=== PATIENT | female | born 1960 | race Two or more races ===

== ENCOUNTER 2021-03-14 13:53 | Emergency (ER) | payer MEDICAID, OTHER ==
[~2021-03-14] VITALS: Ht 170.2 cm; Wt 93.0 kg
[~2021-03-14 13:53] MED LIST: TOPUD MT
[2021-03-14] MEDS ORDERED: NITROGLYCERIN 0.4MG TABLET SL SL PRN (14:15)
[2021-03-14] MEDS ORDERED: ASPIRIN 81MG TABLET PO ONE (14:15)
[2021-03-14] MEDS ORDERED: ASPIRIN 81MG EC TABLET PO ONE (15:15)
[2021-03-14] MEDS ORDERED: FAMOTIDINE 20MG/2ML VIAL IV STA (17:05)
[2021-03-14] MEDS ORDERED: METOCLOPRAMIDE HCL 10MG/2ML VIAL IV STA (17:05)
[2021-03-14 17:26] LABS: BASOPHILS % 0.2 % (0.0-2.0); EOSINOPHILS % 0.5 % (0.0-5.0); HEMOGLOBIN. 15.1 g/dL (12.0-16.0); MEAN CORPUSCULAR HEMOGLOBIN 27.8 pg (28.0-32.0); MEAN CORPUSCULAR VOLUME 82.6 fL (81.0-99.0); MONOCYTES % 3.2 % (2.0-8.0); NEUTROPHILS % 85.1 % (40.0-76.0); PLATELET 335 x1000/uL (130-400); RED BLOOD CELL COUNT 5.44 mill/uL (4.2-5.4); RED CELL DISTRIBUTION WIDTH 13.8 % (11.6-14.6)
[2021-03-14 17:33] LABS: CHLORIDE 105 mEq/L (98-107)
[2021-03-14 17:42] LABS: HDL CHOLESTEROL 46 mg/dL (40-59); LDL CHOLESTEROL 129 mg/dL (5-100)
[2021-03-14] MEDS ORDERED: SODIUM CHLORIDE 0.9% 1,000 ML IV ONE (17:45)
[2021-03-14] MEDS ORDERED: POTASSIUM CHLORIDE 20MEQ TABLET SR PO NR (20:00)
[2021-03-14] MEDS ORDERED: KETOROLAC 15MG/ML VIAL IV ONE (20:45)
[2021-03-14] MEDS ORDERED: KETOROLAC 30MG/ML VIAL IV SCH (21:00)
[2021-03-14 21:32] LABS: CLARITY URINE CLEAR (CLEAR); COLOR URINE YELLOW (YELLOW); KETONES URINE TRACE (NEGATIVE); LEUKOCYTE ESTERASE URINE NEGATIVE (NEGATIVE); NITRITE URINE NEGATIVE (NEGATIVE); OCCULT BLOOD URINE NEGATIVE (NEGATIVE); PH URINE 5.5 (4.5-8.0); PROTEIN URINE TRACE (NEGATIVE); SPECIFIC GRAVITY URINE 1.017 (1.005-1.030); UROBILINOGEN URINE 0.2 E.U./dL (0.2-1.0)
[2021-03-14 23:20] VITALS: BP 126/85
== END 2021-03-14 23:22 | disposition short-term general hospital (02) ==
LOC: ER 13:53
DX: K80.80 Other cholelithiasis without obstruction (principal); R00.0 Tachycardia, unspecified; E87.6 Hypokalemia; I10 Essential (primary) hypertension; E03.9 Hypothyroidism, unspecified
CPT/HCPCS: 36415; 71045; 74176; 76700; 80053; 80061; 81003; 83880; 84484; 85025; 93005; 96361; 96374; 96375; 99285; J1885; J2765; J3490; J7030

== ENCOUNTER 2021-07-29 17:43 | Emergency (ER) | payer MEDICAID, OTHER ==
[~2021-07-29] VITALS: Ht 167.6 cm; Wt 104.0 kg
[2021-07-29] MEDS ORDERED: ONDANSETRON HCL 4MG/2ML INJ IV ONE (19:15)
[2021-07-29] MEDS ORDERED: FAMOTIDINE 20MG/2ML VIAL IV ONE (19:15)
[2021-07-29] MEDS ORDERED: MORPHINE SULFATE 4 MG/ML CPJ (NOT FOR IM USE) IV ONE ×2 (19:15→21:15)
[2021-07-29 20:13] LABS: BASOPHILS % 0.5 % (0.0-2.0); EOSINOPHILS % 3.8 % (0.0-5.0); HEMATOCRIT. 36.7 % (36.0-48.0); HEMOGLOBIN. 12.6 g/dL (12.0-16.0); LYMPHOCYTES % 29.5 % (20.0-50.0); MEAN CORPUSCULAR HEMOGLOBIN 27.5 pg (28.0-32.0); MEAN CORPUSCULAR VOLUME 79.9 fL (81.0-99.0); MONOCYTES % 9.9 % (2.0-8.0); NEUTROPHILS % 56.3 % (40.0-76.0); PLATELET 248 x1000/uL (130-400)
[2021-07-29 20:17] LABS: CLARITY URINE CLEAR (CLEAR); COLOR URINE YELLOW (YELLOW); KETONES URINE TRACE (NEGATIVE); LEUKOCYTE ESTERASE URINE NEGATIVE (NEGATIVE); NITRITE URINE NEGATIVE (NEGATIVE); OCCULT BLOOD URINE NEGATIVE (NEGATIVE); PROTEIN URINE NEGATIVE (NEGATIVE); SPECIFIC GRAVITY URINE 1.016 (1.005-1.030)
[2021-07-29 20:22] LABS: CHLORIDE 109 mEq/L (98-107)
[2021-07-29 21:41] LABS: PROTHROMBIN TIME 10.8 sec (9.6-11.0)
[2021-07-29] MEDS ORDERED: POTASSIUM CHLORIDE 20MEQ/PACKET PO ONE (22:30)
[2021-07-29 23:55] LABS: T4 FREE 1.52 ng/dL (0.76-1.46)
[2021-07-30] MEDS ORDERED: FAMO40TA70 MT (00:15)
[2021-07-30 00:24] VITALS: BP 139/80
[2021-07-30] MEDS ORDERED: MORPHINE SULFATE 4 MG/ML CPJ (NOT FOR IM USE) IV ONE (00:30)
== END 2021-07-30 00:30 | disposition home or self-care (01) ==
LOC: ER 17:43
DX: K80.20 Calculus of gallbladder without cholecystitis without obstruction (principal); R00.0 Tachycardia, unspecified; E87.6 Hypokalemia; I10 Essential (primary) hypertension
CPT/HCPCS: 36415; 71045; 74176; 76700; 80053; 81003; 83690; 83880; 84439; 84443; 84481; 84484; 85025; 85610; 93005; 96374; 96375; 96376; 99285; J2270; J2405; J3490

== ENCOUNTER 2022-02-09 12:23 | Emergency (ER) | payer OTHER ==
[~2022-02-09] VITALS: Ht 170.2 cm; Wt 85.0 kg
[~2022-02-09 12:23] MED LIST changes: +FAMO40TA70 MT
[2022-02-09 12:37] VITALS: BP 122/81
== END 2022-02-09 16:50 | disposition left against medical advice (07) ==
LOC: ER 12:23
DX: Z53.21 Procedure and treatment not carried out due to patient leaving prior to being seen by health care provider (principal)

== ENCOUNTER 2022-03-13 13:36 | Inpatient (IN) | payer MEDICAID ==
[~2022-03-13] VITALS: Ht 170.2 cm; Wt 84.9 kg
[~2022-03-13 13:36] MED LIST changes: +APIX5TAB PO; +DILT90TA2 PO; +HYDR-4001 MT; +METH-371 PO; +ZOLP5TAB2 MT
[2022-03-13] MEDS ORDERED: MIDAZOLAM HCL 2 MG/2 ML VIAL IV ONE (14:30)
[2022-03-13] MEDS ORDERED: ASPIRIN 81MG TABLET PO ONE (14:30)
[2022-03-13] MEDS ORDERED: ADENOSINE 3 MG/ML 2ML VIAL IV ONE ×3 (14:30)
[2022-03-13 14:56] LABS: BASOPHILS % 1.2 % (0.0-2.0); EOSINOPHILS % 2.1 % (0.0-5.0); HEMATOCRIT. 43.1 % (36.0-48.0); HEMOGLOBIN. 14.1 g/dL (12.0-16.0); LYMPHOCYTES % 47.3 % (20.0-50.0); MEAN CORPUSCULAR HEMOGLOBIN 26.7 pg (28.0-32.0); MEAN CORPUSCULAR VOLUME 81.6 fL (81.0-99.0); MEAN PLATELET VOLUME 8.5 fl (7.4-10.4); MONOCYTES % 6.3 % (2.0-8.0); NEUTROPHILS % 43.1 % (40.0-76.0); PLATELET 392 x1000/uL (130-400); RED BLOOD CELL COUNT 5.28 mill/uL (4.2-5.4); RED CELL DISTRIBUTION WIDTH 14.9 % (11.6-14.6)
[2022-03-13 15:09] LABS: INR 1.1; PARTIAL THROMBOPLASTIN TIME 29.1 sec (23.4-31.0); PROTHROMBIN TIME 11.7 sec (9.6-11.0)
[2022-03-13 15:20] LABS: CHLORIDE 107 mEq/L (98-107)
[2022-03-13] MEDS ORDERED: ASPIRIN 325MG EC TABLET PO ONE (16:15)
[2022-03-13] MEDS ORDERED: MORPHINE SULFATE 2 MG/ML CPJ (NOT FOR IM USE) IV ONE (16:15)
[2022-03-13] MEDS ORDERED: AMIODARONE HCL 150 MG in DEXT 5% WATER 97 ML IV ONE (16:30)
[2022-03-13] MEDS ORDERED: AMIODARONE HCL 900 MG in DEXT 5% WATER 482 ML IV SCH (16:45)
[2022-03-13] MEDS ORDERED: POTASSIUM CHLORIDE 20MEQ TABLET SR PO ONE (16:45)
[2022-03-13] MEDS ORDERED: ENOXAPARIN 100MG/ML SYR SUBCUT ONE (17:30)
[2022-03-13] MEDS: ENOXAPARIN 100MG/ML SYR SUBCUT SCH ×2 (17:43→17:47)
[2022-03-13 21:20] VITALS: BP 117/71
[2022-03-13 21:30] VITALS: BP 117/71
[2022-03-13] MEDS ORDERED: IOHEXOL-350 100 ML BOTTLE ONE (23:12)
[2022-03-13 23:13] VITALS: BP 126/82
[2022-03-13 23:28] VITALS: BP 114/71
[2022-03-13] MEDS ORDERED: NALOXONE HCL 0.4MG/ML VIAL IV PRN (23:45)
[2022-03-13] MEDS: AMIODARONE HCL 900 MG in DEXT 5% WATER 482 ML IV SCH (23:58)
[2022-03-13 23:59] VITALS: BP 122/81
[2022-03-14] VITALS (45 sets, daily range): BP systolic 11–132; BP diastolic 34–101
[2022-03-14] MEDS: ZOLPIDEM TARTRATE 5MG TABLET PO PRN ×2 (00:01→20:58)
[2022-03-14] MEDS: HYDROCODONE/ACETAMINOPHEN 10/325MG TABLET PO PRN ×4 (00:01→20:58)
[2022-03-14 06:56] LABS: BASOPHILS % 1.2 % (0.0-2.0); HEMATOCRIT. 38.1 % (36.0-48.0); HEMOGLOBIN. 12.5 g/dL (12.0-16.0); LYMPHOCYTES % 42.3 % (20.0-50.0); MEAN CORPUSCULAR HEMOGLOBIN 26.9 pg (28.0-32.0); MEAN CORPUSCULAR VOLUME 81.9 fL (81.0-99.0); MEAN PLATELET VOLUME 8.8 fl (7.4-10.4); MONOCYTES % 8.4 % (2.0-8.0); NEUTROPHILS % 44.1 % (40.0-76.0); PLATELET 296 x1000/uL (130-400); RED BLOOD CELL COUNT 4.65 mill/uL (4.2-5.4); RED CELL DISTRIBUTION WIDTH 14.7 % (11.6-14.6)
[2022-03-14 07:08] LABS: CHLORIDE 112 mEq/L (98-107)
[2022-03-14] MEDS ORDERED: APIXABAN 5 MG TABLET PO SCH (09:00)
[2022-03-14] MEDS ORDERED: DILTIAZEM HCL 90MG TABLET PO SCH (09:00)
[2022-03-14] MEDS: FAMOTIDINE 20MG TABLET PO SCH ×2 (09:05→17:00)
[2022-03-14] MEDS ORDERED: METHIMAZOLE 5MG TABLET PO SCH (09:30)
[2022-03-14] MEDS ORDERED: METHIMAZOLE 10MG TABLET PO SCH (09:51)
[2022-03-14] MEDS ORDERED: POTASSIUM CHLORIDE 20MEQ/PACKET PO NR (10:30)
[2022-03-14] MEDS ORDERED: MAGNESIUM 2 G PREMIX 50 ML IV NR (10:30)
[2022-03-14] MEDS: ENOXAPARIN 100MG/ML SYR SUBCUT SCH (18:06)
[2022-03-14] MEDS: ACETAMINOPHEN 325MG TABLET PO PRN (18:44)
[2022-03-14] MEDS: AMIODARONE HCL 900 MG in DEXT 5% WATER 482 ML IV SCH (18:49)
[2022-03-14 19:55] LABS: T4 FREE 1.34 ng/dL (0.76-1.46)
[2022-03-14] MEDS: DILTIAZEM HCL 60MG TABLET PO SCH (20:12)
[2022-03-14] MEDS: METHIMAZOLE 10MG TABLET PO SCH (21:07)
[2022-03-15] VITALS (27 sets, daily range): BP systolic 99–150; BP diastolic 56–98
[2022-03-15] MEDS: DILTIAZEM HCL 60MG TABLET PO SCH ×4 (01:06→21:11)
[2022-03-15] MEDS: ENOXAPARIN 100MG/ML SYR SUBCUT SCH ×2 (06:09→17:08)
[2022-03-15] MEDS: METHIMAZOLE 10MG TABLET PO SCH ×3 (06:32→21:13)
[2022-03-15 06:38] LABS: BASOPHILS % 1.4 % (0.0-2.0); EOSINOPHILS % 5.7 % (0.0-5.0); HEMATOCRIT. 36.8 % (36.0-48.0); HEMOGLOBIN. 12.4 g/dL (12.0-16.0); LYMPHOCYTES % 42.7 % (20.0-50.0); MEAN CORPUSCULAR HEMOGLOBIN 27.4 pg (28.0-32.0); MEAN CORPUSCULAR VOLUME 81.2 fL (81.0-99.0); MEAN PLATELET VOLUME 8.5 fl (7.4-10.4); MONOCYTES % 8.9 % (2.0-8.0); NEUTROPHILS % 41.3 % (40.0-76.0); PLATELET 296 x1000/uL (130-400); RED BLOOD CELL COUNT 4.53 mill/uL (4.2-5.4); RED CELL DISTRIBUTION WIDTH 14.8 % (11.6-14.6)
[2022-03-15 06:43] LABS: CHLORIDE 110 mEq/L (98-107)
[2022-03-15] MEDS: ACETAMINOPHEN 325MG TABLET PO PRN (06:46)
[2022-03-15] MEDS: KCL 20MEQ/100ML PREMIX 100 ML IV SCH ×2 (08:44→11:03)
[2022-03-15] MEDS: HYDROCODONE/ACETAMINOPHEN 10/325MG TABLET PO PRN ×3 (08:45→21:12)
[2022-03-15] MEDS: FAMOTIDINE 20MG TABLET PO SCH ×2 (08:45→17:08)
[2022-03-15] MEDS: MAGNESIUM OXIDE 400MG TABLET PO SCH (08:45)
[2022-03-15] MEDS ORDERED: MORPHINE SULFATE 2 MG/ML CPJ (NOT FOR IM USE) IV NR (12:30)
[2022-03-15] MEDS ORDERED: LACTULOSE 20G/30ML UDC PO PRN (12:30)
[2022-03-15] MEDS ORDERED: DOCUSATE SODIUM 250MG CAPSULE PO PRN (12:30)
[2022-03-15] MEDS: ONDANSETRON HCL 4MG/2ML INJ IV PRN ×2 (12:34→17:22)
[2022-03-15 13:57] LABS: *AMPHETAMINES SCREEN URINE NEGATIVE (NEGATIVE); *BARBITURATES SCREEN URINE NEGATIVE (NEGATIVE); *BENZODIAZEPINES SCREEN URINE PRESUMTIVE POSITIVE (NEGATIVE); *COCAINE SCREEN URINE NEGATIVE (NEGATIVE); CANNABINOID URINE SCREEN NEGATIVE (NEGATIVE); METHADONE URINE SCREEN NEGATIVE (NEGATIVE); OPIATES URINE SCREEN PRESUMTIVE POSITIVE (NEGATIVE); PHENCYCLIDINE URINE SCREEN NEGATIVE (NEGATIVE)
[2022-03-15] MEDS: ZOLPIDEM TARTRATE 5MG TABLET PO PRN (21:13)
[2022-03-16] VITALS (32 sets, daily range): BP systolic 97–145; BP diastolic 44–100
[2022-03-16 05:45] LABS: BASOPHILS % 0.9 % (0.0-2.0); EOSINOPHILS % 3.8 % (0.0-5.0); HEMATOCRIT. 36.7 % (36.0-48.0); HEMOGLOBIN. 12.2 g/dL (12.0-16.0); LYMPHOCYTES % 37.3 % (20.0-50.0); MEAN CORPUSCULAR HEMOGLOBIN 27.1 pg (28.0-32.0); MEAN CORPUSCULAR VOLUME 81.9 fL (81.0-99.0); MEAN PLATELET VOLUME 8.6 fl (7.4-10.4); MONOCYTES % 8.6 % (2.0-8.0); NEUTROPHILS % 49.4 % (40.0-76.0); PLATELET 273 x1000/uL (130-400); RED BLOOD CELL COUNT 4.48 mill/uL (4.2-5.4); RED CELL DISTRIBUTION WIDTH 14.6 % (11.6-14.6)
[2022-03-16 05:58] LABS: CHLORIDE 108 mEq/L (98-107)
[2022-03-16] MEDS: ENOXAPARIN 100MG/ML SYR SUBCUT SCH ×2 (06:29→17:52)
[2022-03-16] MEDS: METHIMAZOLE 10MG TABLET PO SCH ×3 (06:30→21:37)
[2022-03-16] MEDS: DILTIAZEM HCL 60MG TABLET PO SCH (06:30)
[2022-03-16] MEDS: HYDROCODONE/ACETAMINOPHEN 10/325MG TABLET PO PRN ×3 (06:36→18:44)
[2022-03-16] MEDS: FAMOTIDINE 20MG TABLET PO SCH ×2 (09:48→17:48)
[2022-03-16] MEDS: METOPROLOL TARTRATE 25MG TABLET PO SCH ×2 (09:48→21:35)
[2022-03-16] MEDS: MAGNESIUM OXIDE 400MG TABLET PO SCH (09:48)
[2022-03-16] MEDS: DILTIAZEM HCL 90MG TABLET PO SCH ×2 (14:18→21:36)
[2022-03-16] MEDS: ZOLPIDEM TARTRATE 5MG TABLET PO PRN (21:42)
[2022-03-17] VITALS (22 sets, daily range): BP systolic 109–140; BP diastolic 51–87
[2022-03-17] MEDS: HYDROCODONE/ACETAMINOPHEN 10/325MG TABLET PO PRN ×3 (00:52→15:49)
[2022-03-17] MEDS: METHIMAZOLE 10MG TABLET PO SCH ×3 (06:17→21:09)
[2022-03-17] MEDS: DILTIAZEM HCL 90MG TABLET PO SCH ×3 (06:17→21:09)
[2022-03-17] MEDS: ENOXAPARIN 100MG/ML SYR SUBCUT SCH ×2 (06:17→17:47)
[2022-03-17] MEDS: FAMOTIDINE 20MG TABLET PO SCH ×2 (09:15→17:47)
[2022-03-17] MEDS: MAGNESIUM OXIDE 400MG TABLET PO SCH (09:15)
[2022-03-17] MEDS: METOPROLOL TARTRATE 25MG TABLET PO SCH ×2 (09:15→21:08)
[2022-03-17] MEDS: ZOLPIDEM TARTRATE 5MG TABLET PO PRN (21:44)
[2022-03-18] VITALS (25 sets, daily range): BP systolic 103–154; BP diastolic 54–101
[2022-03-18] MEDS: HYDROCODONE/ACETAMINOPHEN 10/325MG TABLET PO PRN ×3 (02:11→16:08)
[2022-03-18] MEDS: DILTIAZEM HCL 90MG TABLET PO SCH ×3 (06:11→21:22)
[2022-03-18] MEDS: METHIMAZOLE 10MG TABLET PO SCH ×3 (06:11→21:23)
[2022-03-18] MEDS: ENOXAPARIN 100MG/ML SYR SUBCUT SCH ×3 (06:12→15:44)
[2022-03-18 06:22] LABS: BASOPHILS % 1.5 % (0.0-2.0); EOSINOPHILS % 4.3 % (0.0-5.0); HEMATOCRIT. 37.6 % (36.0-48.0); HEMOGLOBIN. 12.3 g/dL (12.0-16.0); LYMPHOCYTES % 50.2 % (20.0-50.0); MEAN CORPUSCULAR HEMOGLOBIN 26.8 pg (28.0-32.0); MEAN CORPUSCULAR VOLUME 81.8 fL (81.0-99.0); MEAN PLATELET VOLUME 8.9 fl (7.4-10.4); MONOCYTES % 7.6 % (2.0-8.0); NEUTROPHILS % 36.4 % (40.0-76.0); PLATELET 298 x1000/uL (130-400); RED CELL DISTRIBUTION WIDTH 14.6 % (11.6-14.6)
[2022-03-18 09:15] LABS: CHLORIDE 109 mEq/L (98-107)
[2022-03-18] MEDS: FAMOTIDINE 20MG TABLET PO SCH ×2 (09:45→16:04)
[2022-03-18] MEDS: MAGNESIUM OXIDE 400MG TABLET PO SCH (09:45)
[2022-03-18] MEDS: METOPROLOL TARTRATE 25MG TABLET PO SCH ×2 (09:46→21:21)
[2022-03-18] MEDS: ZOLPIDEM TARTRATE 5MG TABLET PO PRN (21:23)
[2022-03-19] VITALS (19 sets, daily range): BP systolic 80–134; BP diastolic 42–94
[2022-03-19 05:55] LABS: BASOPHILS % 0.9 % (0.0-2.0); EOSINOPHILS % 3.9 % (0.0-5.0); HEMATOCRIT. 35.8 % (36.0-48.0); HEMOGLOBIN. 11.9 g/dL (12.0-16.0); LYMPHOCYTES % 43.4 % (20.0-50.0); MEAN CORPUSCULAR HEMOGLOBIN 27.1 pg (28.0-32.0); MEAN CORPUSCULAR VOLUME 81.1 fL (81.0-99.0); MEAN PLATELET VOLUME 8.3 fl (7.4-10.4); NEUTROPHILS % 43.8 % (40.0-76.0); PLATELET 282 x1000/uL (130-400); RED BLOOD CELL COUNT 4.41 mill/uL (4.2-5.4); RED CELL DISTRIBUTION WIDTH 14.4 % (11.6-14.6)
[2022-03-19 05:58] LABS: PARTIAL THROMBOPLASTIN TIME 27.9 sec (23.4-31.0); PROTHROMBIN TIME 10.8 sec (9.6-11.0)
[2022-03-19 06:13] LABS: CHLORIDE 109 mEq/L (98-107)
[2022-03-19] MEDS: METHIMAZOLE 10MG TABLET PO SCH ×3 (06:21→21:42)
[2022-03-19] MEDS: DILTIAZEM HCL 90MG TABLET PO SCH ×3 (06:21→21:42)
[2022-03-19] MEDS ORDERED: HEPARIN 1000 UNITS/ML 10ML ONE (07:21)
[2022-03-19] MEDS ORDERED: LIDOCAINE HCL 1% 50ML VIAL (10MG/ML) ONE (08:05)
[2022-03-19] MEDS ORDERED: PROPOFOL 10MG/ML 100ML 0 ML IV ONE (08:08)
[2022-03-19] MEDS ORDERED: FENTANYL CITRATE/PF 50MCG/ML 2ML VIAL ONE (08:15)
[2022-03-19] MEDS ORDERED: PROPOFOL 200MG/20ML VIAL IV ONE (08:23)
[2022-03-19] MEDS ORDERED: KCL 20MEQ/100ML PREMIX 100 ML IV ONE (08:33)
[2022-03-19] MEDS ORDERED: PHENYLEPHRINE HCL 10 MG/ML 1ML (IV VIAL) IV ONE (08:37)
[2022-03-19] MEDS: MAGNESIUM OXIDE 400MG TABLET PO SCH (09:00)
[2022-03-19] MEDS: METOPROLOL TARTRATE 25MG TABLET PO SCH ×2 (09:00→21:41)
[2022-03-19] MEDS ORDERED: CEFAZOLIN SODIUM 1000MG/VIAL ONE (09:20)
[2022-03-19] MEDS ORDERED: EPHEDRINE SULFATE 50MG/ML VIAL ONE (10:49)
[2022-03-19] MEDS ORDERED: ONDANSETRON HCL 4MG/2ML INJ ONE (10:49)
[2022-03-19] MEDS ORDERED: ATROPINE SULFATE 1MG/10ML SYR IV PRN (11:30)
[2022-03-19] MEDS ORDERED: ACETAMINOPHEN 325MG TABLET PO PRN (11:30)
[2022-03-19] MEDS ORDERED: NALOXONE HCL 0.4MG/ML VIAL IV PRN (12:45)
[2022-03-19] MEDS: HYDROCODONE/ACETAMINOPHEN 5/325MG TABLET PO PRN ×3 (12:50→23:37)
[2022-03-19] MEDS: FAMOTIDINE 20MG TABLET PO SCH ×2 (12:51→18:35)
[2022-03-19] MEDS: ZOLPIDEM TARTRATE 5MG TABLET PO PRN (21:44)
[2022-03-20] VITALS: BP 112/64
[2022-03-20 04:00] VITALS: BP 121/72
[2022-03-20] MEDS: METHIMAZOLE 10MG TABLET PO SCH ×3 (05:17→22:07)
[2022-03-20] MEDS: DILTIAZEM HCL 90MG TABLET PO SCH ×3 (05:17→21:32)
[2022-03-20] MEDS: HYDROCODONE/ACETAMINOPHEN 5/325MG TABLET PO PRN ×3 (05:18→23:52)
[2022-03-20 06:37] LABS: BASOPHILS % 0.9 % (0.0-2.0); EOSINOPHILS % 3.5 % (0.0-5.0); HEMATOCRIT. 32.6 % (36.0-48.0); LYMPHOCYTES % 33.6 % (20.0-50.0); MEAN CORPUSCULAR HEMOGLOBIN 27.6 pg (28.0-32.0); MEAN CORPUSCULAR VOLUME 81.4 fL (81.0-99.0); MEAN PLATELET VOLUME 8.5 fl (7.4-10.4); MONOCYTES % 7.8 % (2.0-8.0); NEUTROPHILS % 54.2 % (40.0-76.0); PLATELET 241 x1000/uL (130-400); RED CELL DISTRIBUTION WIDTH 14.6 % (11.6-14.6)
[2022-03-20 06:40] LABS: CHLORIDE 111 mEq/L (98-107)
[2022-03-20 08:00] VITALS: BP 97/63
[2022-03-20] MEDS: MAGNESIUM OXIDE 400MG TABLET PO SCH (09:00)
[2022-03-20] MEDS: METOPROLOL TARTRATE 25MG TABLET PO SCH ×2 (09:43→21:32)
[2022-03-20] MEDS: FAMOTIDINE 20MG TABLET PO SCH ×2 (09:43→18:28)
[2022-03-20 12:00] VITALS: BP 120/75
[2022-03-20] MEDS ORDERED: METH-372 MT (13:05)
[2022-03-20 16:00] VITALS: BP 106/50
[2022-03-20 20:00] VITALS: BP_SYST 108; BP_SYST 110; BP_DIAS 67
[2022-03-20] MEDS ORDERED: ZOLPIDEM TARTRATE 5MG TABLET PO PRN (22:00)
[2022-03-21] VITALS: BP 139/76
[2022-03-21 04:00] VITALS: BP 132/75
[2022-03-21] MEDS: METHIMAZOLE 10MG TABLET PO SCH (05:24)
[2022-03-21] MEDS: DILTIAZEM HCL 90MG TABLET PO SCH (05:24)
[2022-03-21 08:00] VITALS: BP 122/60
[2022-03-21] MEDS: METOPROLOL TARTRATE 25MG TABLET PO SCH (08:53)
[2022-03-21] MEDS: FAMOTIDINE 20MG TABLET PO SCH (08:53)
[2022-03-21] MEDS: MAGNESIUM OXIDE 400MG TABLET PO SCH (08:54)
[2022-03-21] MEDS: HYDROCODONE/ACETAMINOPHEN 5/325MG TABLET PO PRN (08:56)
[2022-03-21 09:31] VITALS: BP 122/60
== END 2022-03-21 10:15 | disposition home or self-care (01) | DRG 175 ==
LOC: ER 13:50 → CVICU 16:45 → EDBEDREQ 16:50 → 7WST 03-19 17:51
PROVIDERS: ADMIT Internal Medicine; ATTEND Internal Medicine
PROC: 5A2204Z Restoration of Cardiac Rhythm, Single (ICD-10-PCS; 2022-03-13)
PROC: 02583ZZ Destruction of Conduction Mechanism, Percutaneous Approach (ICD-10-PCS; principal; 2022-03-19)
PROC: 4A0234Z Measurement of Cardiac Electrical Activity, Percutaneous Approach (ICD-10-PCS; 2022-03-19)
PROC: B24BZZZ Ultrasonography of Heart with Aorta (ICD-10-PCS; 2022-03-19)
PROC: 02K83ZZ Map Conduction Mechanism, Percutaneous Approach (ICD-10-PCS; 2022-03-19)
DX: I48.0 Paroxysmal atrial fibrillation (principal); D68.69 Other thrombophilia; I27.21 Secondary pulmonary arterial hypertension; E44.0 Moderate protein-calorie malnutrition; G72.3 Periodic paralysis; I48.3 Typical atrial flutter; I47.1 Supraventricular tachycardia; E03.9 Hypothyroidism, unspecified; E05.00 Thyrotoxicosis with diffuse goiter without thyrotoxic crisis or storm; E78.00 Pure hypercholesterolemia, unspecified; J44.9 Chronic obstructive pulmonary disease, unspecified; I10 Essential (primary) hypertension; E83.42 Hypomagnesemia; K80.20 Calculus of gallbladder without cholecystitis without obstruction; K76.9 Liver disease, unspecified; I25.10 Atherosclerotic heart disease of native coronary artery without angina pectoris; E78.5 Hyperlipidemia, unspecified; F14.90 Cocaine use, unspecified, uncomplicated; I49.9 Cardiac arrhythmia, unspecified; I34.0 Nonrheumatic mitral (valve) insufficiency; R73.9 Hyperglycemia, unspecified; F32.A Depression, unspecified; F17.210 Nicotine dependence, cigarettes, uncomplicated; R47.81 Slurred speech; Z79.01 Long term (current) use of anticoagulants; Z82.49 Family history of ischemic heart disease and other diseases of the circulatory system; Z63.4 Disappearance and death of family member; Z80.1 Family history of malignant neoplasm of trachea, bronchus and lung; Z79.899 Other long term (current) drug therapy
CPT/HCPCS: 36415; 71045; 71275; 80048; 80053; 80305; 82024; 82088; 82533; 82962; 83735; 83880; 84439; 84443; 84481; 84484; 85025; 85379; 86850; 86900; 93005; 93613; 93621; 93653; 93662; 99291; C1731; C1732; C1759; C1893; J0153; J0282; J0690; J1644; J1650; J2250; J2270; J2370; J2405; J2704; J3010; J3475; J3480; J3490; J7060; Q9967

== ENCOUNTER 2022-07-17 11:35 | Emergency (ER) | payer MEDICAID, OTHER ==
[~2022-07-17] VITALS: Ht 170.2 cm; Wt 89.0 kg
[~2022-07-17 11:35] MED LIST changes: -DILT90TA2 PO; -METH-371 PO; +METH-372 MT
[2022-07-17 12:04] VITALS: BP 130/90
[2022-07-17] MEDS ORDERED: MECLIZINE 25MG TABLET PO ONE (12:45)
[2022-07-17 13:09] LABS: BASOPHILS % 1.4 % (0.0-2.0); EOSINOPHILS % 2.6 % (0.0-5.0); HEMATOCRIT. 37.2 % (36.0-48.0); HEMOGLOBIN. 12.7 g/dL (12.0-16.0); LYMPHOCYTES % 35.5 % (20.0-50.0); MEAN CORPUSCULAR HEMOGLOBIN 29.4 pg (28.0-32.0); MEAN CORPUSCULAR VOLUME 86.3 fL (81.0-99.0); MEAN PLATELET VOLUME 7.6 fl (7.4-10.4); MONOCYTES % 4.6 % (2.0-8.0); NEUTROPHILS % 55.9 % (40.0-76.0); PLATELET 282 x1000/uL (130-400); RED BLOOD CELL COUNT 4.32 mill/uL (4.2-5.4); RED CELL DISTRIBUTION WIDTH 16.3 % (11.6-14.6)
[2022-07-17 13:14] LABS: CHLORIDE 111 mEq/L (98-107)
[2022-07-17 14:23] LABS: T4 FREE 0.26 ng/dL (0.76-1.46)
[2022-07-17] MEDS ORDERED: SODIUM CHLORIDE 0.9% 1,000 ML IV ONE (14:45)
== END 2022-07-17 16:25 | disposition left against medical advice (07) ==
LOC: ER 11:35
DX: R42 Dizziness and giddiness (principal); I10 Essential (primary) hypertension; E78.00 Pure hypercholesterolemia, unspecified; Z86.39 Personal history of other endocrine, nutritional and metabolic disease
CPT/HCPCS: 36415; 70450; 71045; 80053; 84439; 84443; 84484; 85025; 93005; 96360; 99285; J7030; J8597; Z7610

== ENCOUNTER 2022-11-27 14:53 | Emergency (ER) | payer BC, MEDICAID ==
[~2022-11-27] VITALS: Ht 167.6 cm; Wt 86.0 kg
[~2022-11-27 14:53] MED LIST changes: +LISI20TA31 MT; +SIMV-46 MT
[2022-11-27 15:17] VITALS: BP 128/84; O2SAT 100
[2022-11-27 18:56] LABS: BASOPHILS % 1.1 % (0.0-2.0); EOSINOPHILS % 2.3 % (0.0-5.0); HEMATOCRIT. 38.9 % (36.0-48.0); LYMPHOCYTES % 36.7 % (20.0-50.0); MEAN CORPUSCULAR HEMOGLOBIN 28.4 pg (28.0-32.0); MEAN CORPUSCULAR HGB CONC 33.4 g/dL (31.0-37.0); MEAN CORPUSCULAR VOLUME 84.9 fL (81.0-99.0); MEAN PLATELET VOLUME 7.6 fl (7.4-10.4); MONOCYTES % 5.2 % (2.0-8.0); NEUTROPHILS % 54.7 % (40.0-76.0); PLATELET 266 x1000/uL (130-400); RED BLOOD CELL COUNT 4.57 mill/uL (4.2-5.4); RED CELL DISTRIBUTION WIDTH 13.8 % (11.6-14.6); WHITE BLOOD COUNT 7.8 x1000/uL (4.5-11.0)
[2022-11-27 19:13] LABS: CHLORIDE 113 mEq/L (98-107); INDEX HEMOLYSI 1 (1-3); INDEX ICTERIC 1 (1-4); INDEX LIPEMIC 1 (1-3); POTASSIUM 3.4 mEq/L (3.5-5.1); SODIUM 139 mEq/L (136-145)
[2022-11-27 19:22] LABS: ALANINE AMINOTRANSFERASE 24 IU/L (13-61); ALBUMIN 3.9 g/dL (3.4-5.0); ASPARTATE AMINOTRANSFERASE 17 IU/L (15-37); BILIRUBIN TOTAL 0.4 mg/dL (0.1-1.0); CALCIUM 9.1 mg/dL (8.5-10.1); CARBON DIOXIDE 27 mEq/L (21-32); CREATININE 0.7 mg/dL (0.6-1.3); GLUCOSE 89 mg/dL (70-105); PROTEIN TOTAL 8.6 g/dL (6.0-8.3); UREA NITROGEN BLOOD 10 mg/dL (7-21)
[2022-11-27 19:28] LABS: TROPONIN I HIGH SENSITIVITY 6 ng/L (<54)
[2022-11-27 19:45] VITALS: PULSE 70; RESP 16; TEMP 98.7
== END 2022-11-27 19:50 | disposition home or self-care (01) ==
LOC: ER 14:53
DX: R42 Dizziness and giddiness (principal); M20.21 Hallux rigidus, right foot; I10 Essential (primary) hypertension; E78.00 Pure hypercholesterolemia, unspecified; Z86.39 Personal history of other endocrine, nutritional and metabolic disease
CPT/HCPCS: 36415; 71045; 73630; 80053; 84443; 84484; 85025; 93005; 99285

== ENCOUNTER 2022-12-23 18:31 | Emergency (ER) | payer BC, MEDICAID ==
[~2022-12-23] VITALS: Ht 167.6 cm; Wt 104.0 kg
[~2022-12-23 18:31] MED LIST changes: +ASPI-1406 PO; +ATOR40TA70 PO; -HYDR-4001 MT; -LISI20TA31 MT; +METH-371 PO; -METH-372 MT; -SIMV-46 MT; -TOPUD MT; -ZOLP5TAB2 MT
[2022-12-23 18:40] VITALS: BP 148/90; PULSE 99; RESP 16; TEMP 98.5; O2SAT 100
[2022-12-23] MEDS ORDERED: IBUPROFEN 600MG TABLET PO STA (19:01)
[2022-12-23 19:23] LABS: BASOPHILS % 1.1 % (0.0-2.0); EOSINOPHILS % 1.9 % (0.0-5.0); HEMATOCRIT. 35.1 % (36.0-48.0); HEMOGLOBIN. 11.9 g/dL (12.0-16.0); LYMPHOCYTES % 35.1 % (20.0-50.0); MEAN CORPUSCULAR HEMOGLOBIN 28.9 pg (28.0-32.0); MEAN CORPUSCULAR HGB CONC 33.8 g/dL (31.0-37.0); MEAN CORPUSCULAR VOLUME 85.5 fL (81.0-99.0); MEAN PLATELET VOLUME 7.6 fl (7.4-10.4); MONOCYTES % 7.7 % (2.0-8.0); NEUTROPHILS % 54.2 % (40.0-76.0); PLATELET 242 x1000/uL (130-400); RED CELL DISTRIBUTION WIDTH 14.3 % (11.6-14.6); WHITE BLOOD COUNT 7.1 x1000/uL (4.5-11.0)
[2022-12-23 19:36] LABS: CHLORIDE 113 mEq/L (98-107); INDEX HEMOLYSI 1 (1-3); INDEX ICTERIC 1 (1-4); INDEX LIPEMIC 1 (1-3); POTASSIUM 3.5 mEq/L (3.5-5.1); SODIUM 141 mEq/L (136-145)
[2022-12-23 19:44] LABS: ALANINE AMINOTRANSFERASE 21 IU/L (13-61); ALBUMIN 3.5 g/dL (3.4-5.0); ASPARTATE AMINOTRANSFERASE 15 IU/L (15-37); BILIRUBIN TOTAL 0.5 mg/dL (0.1-1.0); CARBON DIOXIDE 26 mEq/L (21-32); CREATININE 0.7 mg/dL (0.6-1.3); GLUCOSE 112 mg/dL (70-105); UREA NITROGEN BLOOD 14 mg/dL (7-21)
[2022-12-23 19:47] LABS: CALCIUM 8.9 mg/dL (8.5-10.1)
[2022-12-23 21:23] LABS: CLARITY URINE CLEAR (CLEAR); COLOR URINE YELLOW (YELLOW); GLUCOSE URINE NEGATIVE (NEGATIVE); KETONES URINE NEGATIVE (NEGATIVE); LEUKOCYTE ESTERASE URINE NEGATIVE (NEGATIVE); NITRITE URINE NEGATIVE (NEGATIVE); OCCULT BLOOD URINE NEGATIVE (NEGATIVE); PH URINE 6.5 (4.5-8.0); PROTEIN URINE NEGATIVE (NEGATIVE); SPECIFIC GRAVITY URINE 1.016 (1.005-1.030); UROBILINOGEN URINE 0.2 E.U./dL (0.2-1.0)
[2022-12-23] MEDS ORDERED: IBUPROFEN 600MG TABLET PO NR (21:45)
[2022-12-24] MEDS ORDERED: TOPUD MT (02:22)
== END 2022-12-24 03:52 | disposition home or self-care (01) ==
LOC: ER 18:31
DX: R10.9 Unspecified abdominal pain (principal); I10 Essential (primary) hypertension; E78.00 Pure hypercholesterolemia, unspecified; Z86.39 Personal history of other endocrine, nutritional and metabolic disease
CPT/HCPCS: 36415; 74176; 80053; 81003; 85025; 93005; 99291

== ENCOUNTER 2023-07-22 17:02 | Emergency (ER) | payer BC, MEDICAID ==
[~2023-07-22] VITALS: Ht 170.2 cm; Wt 95.3 kg
[~2023-07-22 17:02] MED LIST changes: +TOPUD MT
[2023-07-22 17:23] VITALS: BP 130/86; PULSE 107; RESP 18; TEMP 98.4; O2SAT 99
[2023-07-22 17:49] LABS: EOSINOPHILS % 2.1 % (0.0-5.0); HEMATOCRIT. 38.8 % (36.0-48.0); LYMPHOCYTES % 34.1 % (20.0-50.0); MEAN CORPUSCULAR HEMOGLOBIN 28.6 pg (28.0-32.0); MEAN CORPUSCULAR HGB CONC 33.5 g/dL (31.0-37.0); MEAN CORPUSCULAR VOLUME 85.3 fL (81.0-99.0); MEAN PLATELET VOLUME 7.7 fl (7.4-10.4); MONOCYTES % 6.4 % (2.0-8.0); NEUTROPHILS % 56.4 % (40.0-76.0); PLATELET 293 x1000/uL (130-400); RED BLOOD CELL COUNT 4.54 mill/uL (4.2-5.4); RED CELL DISTRIBUTION WIDTH 14.7 % (11.6-14.6); WHITE BLOOD COUNT 9.4 x1000/uL (4.5-11.0)
[2023-07-22 17:56] LABS: CHLORIDE 109 mEq/L (98-107); POTASSIUM 3.9 mEq/L (3.5-5.1); SODIUM 141 mEq/L (136-145)
[2023-07-22 17:58] LABS: CARBON DIOXIDE 26 mEq/L (21-32)
[2023-07-22 18:03] LABS: CREATININE 0.8 mg/dL (0.6-1.0); GLUCOSE 104 mg/dL (70-105); UREA NITROGEN BLOOD 13 mg/dL (9-23)
[2023-07-22 18:05] LABS: ALANINE AMINOTRANSFERASE 17 IU/L (10-49); ALBUMIN 4.3 g/dL (3.2-4.8); ASPARTATE AMINOTRANSFERASE 19 IU/L (<34); BILIRUBIN TOTAL 0.2 mg/dL (0.1-1.0); PROTEIN TOTAL 7.8 g/dL (6.0-8.3)
[2023-07-22 18:07] LABS: BILIRUBIN DIRECT < 0.1 mg/dL (<=3.0); TROPONIN I HIGH SENSITIVITY < 4 ng/L (3.0-34)
== END 2023-07-22 19:46 | disposition left against medical advice (07) ==
LOC: ER 17:02
DX: R06.00 Dyspnea, unspecified (principal); R52 Pain, unspecified; F32.A Depression, unspecified; E78.00 Pure hypercholesterolemia, unspecified; I10 Essential (primary) hypertension; F19.90 Other psychoactive substance use, unspecified, uncomplicated; K80.20 Calculus of gallbladder without cholecystitis without obstruction
CPT/HCPCS: 36415; 71045; 80048; 80076; 83880; 84484; 85025; 93005; 99285

== ENCOUNTER 2024-10-18 18:53 | Emergency (ER) | payer MEDICAID, BC ==
[~2024-10-18] VITALS: Ht 170.2 cm; Wt 100.0 kg
[2024-10-18 18:58] VITALS: O2SAT 98
[2024-10-18 19:44] LABS: BASOPHILS % 1.2 % (0.0-2.0); EOSINOPHILS % 1.6 % (0.0-5.0); HEMATOCRIT. 43.0 % (36.0-48.0); HEMOGLOBIN. 14.8 g/dL (12.0-16.0); LYMPHOCYTES % 28.1 % (20.0-50.0); MEAN PLATELET VOLUME 8.8 fl (7.4-10.4); MONOCYTES % 5.3 % (2.0-8.0); NEUTROPHILS % 63.8 % (40.0-76.0); PLATELET 244 x1000/uL (130-400); RED BLOOD CELL COUNT 5.11 mill/uL (4.2-5.4); RED CELL DISTRIBUTION WIDTH 13.9 % (11.6-14.6)
[2024-10-18 19:57] LABS: CREATININE 0.8 mg/dL (0.6-1.0); UREA NITROGEN BLOOD 14 mg/dL (9-23)
[2024-10-18 19:58] LABS: TROPONIN I HIGH SENSITIVITY < 4 ng/L (3.0-34)
[2024-10-18] MEDS ORDERED: NAPR-681 MT (23:17)
[2024-10-18] MEDS ORDERED: AMOX-494 MT (23:17)
[2024-10-18 23:22] VITALS: BP 149/82; PULSE 89; RESP 18; TEMP 36.8; O2SAT 96
== END 2024-10-18 23:28 | disposition home or self-care (01) ==
LOC: ER 18:53
DX: R07.89 Other chest pain (principal); H92.01 Otalgia, right ear; E03.9 Hypothyroidism, unspecified; E78.00 Pure hypercholesterolemia, unspecified; I10 Essential (primary) hypertension; E05.90 Thyrotoxicosis, unspecified without thyrotoxic crisis or storm; Z79.01 Long term (current) use of anticoagulants; Z79.1 Long term (current) use of non-steroidal anti-inflammatories (NSAID); Z79.899 Other long term (current) drug therapy
CPT/HCPCS: 36415; 71045; 80048; 83880; 84484; 85025; 93005; 99285